=== PATIENT | female | born 1965 | race Two or more races ===

== ENCOUNTER 2016-12-14 19:24 | Emergency (ER) | payer MEDICAID ==
[~2016-12-14] VITALS: Ht 149.9 cm; Wt 41.7 kg
[2016-12-14] MEDS ORDERED: CEFTRIAXONE 1 G PREMIX 50 ML IV ONE (20:30)
[2016-12-14 22:00] VITALS: BP 118/73
== END 2016-12-14 23:20 | disposition home or self-care (01) ==
LOC: ER 19:24
DX: T82.514A Breakdown (mechanical) of infusion catheter, initial encounter (principal); I10 Essential (primary) hypertension; E11.9 Type 2 diabetes mellitus without complications; Y84.8 Other medical procedures as the cause of abnormal reaction of the patient, or of later complication, without mention of misadventure at the time of the procedure; Y92.89 Other specified places as the place of occurrence of the external cause
CPT/HCPCS: 99284; Z7610